=== PATIENT | male | born 1995 | race Caucasian/White ===

== ENCOUNTER 2019-01-18 12:03 | Emergency (ER) | payer OTHER ==
[2019-01-18 12:17] VITALS: BP 126/61
--- NOTE | 2019-01-18 13:00 | EDPHY ---
H & P Time Seen by Provider: 01/18/19 12:59 HPI/ROS: Chief complaint. Fever HPI. Patient is a 23-year-old male has been sick for 5 days. However he tells me he has had painful sores on his lips for 1 week. He has had fever for 5 days. Fever to 102 degrees. Seen at work and [place] and started on Valtrex 3 days ago. He also symptoms began with a sore throat. No cough. No abdominal pain, chest pain, shortness of breath, vomiting diarrhea, rash. No recent sick contacts or travel. No previous mouth sores on his lips. Culture at [facility] was positive for herpes. ROS 10 systems were reviewed and negative with the exception of the elements mentioned in the history of present illness Past Medical/Surgical History: Healthy Social History: Single, daily smoker, no alcohol Smoking Status: Current some day smoker Physical Exam: General Appearance: Alert well-developed male mild distress vital signs are stable. Afebrile currently Eyes: Pupils equal and round no pallor or injection. ENT, tympanic membranes are normal. Pharynx slightly injected without exudate. No lesions noted on hard or soft palate. Crusty yellow lesions on upper and lower lips. No significant cervical adenopathy Respiratory: There are no retractions, lungs are clear to auscultation. Cardiovascular: Regular rate and rhythm. Gastrointestinal: Abdomen is soft and nontender, no masses, bowel sounds normal. Neurological: Awake and alert, sensory and motor exams grossly normal. Skin: Warm and dry, no rashes. Musculoskeletal: Neck is supple nontender. Extremities symmetrical, full range of motion. Psychiatric: Patient is oriented X 3, there is no agitation. Constitutional: Initial Vital Signs Temperature (C) 36.6 C 01/18/19 12:15 Heart Rate 78 01/18/19 12:15 Respiratory Rate 18 01/18/19 12:15 Blood Pressure 126/61 H 01/18/19 12:15 O2 Sat (%) 97 01/18/19 12:15 O2 Delivery Mode Room Air Allergies/Adverse Reactions: No Known Allergies Allergy (Unverified 01/18/19 12:14) Home Medications: Medication Instructions Recorded Valtrex 01/18/19 Medical Decision Making ED Course/Re-evaluation: Re-evaluation at 2:00 p.m.. Patient is stable. Patient and I discussed laboratory evaluation, treatment plan including criteria for return importance follow-up further evaluation. He expresses understanding and agreement Differential Diagnosis: This appears to be 1st onset herpes gingivitis and stomatitis. No other sources for fever or infection are identified. Patient already taking Valtrex. Culture was positive for herpes this week. - Data Points Laboratory Results: 01/18/19 01/18/19 Unknown 13:15 Group A Strep Screen NEGATIVE (NEGATIVE) Group A Strep DNA Pending Departure - Departure Disposition: Home, Routine, Self-Care Clinical Impression: Herpes stomatitis Condition: Good Instructions: Oral Herpes Simplex Virus Infections (ED) Additional Instructions: Continue Valtrex as prescribed until completed Ibuprofen 600 mg every 6 hr, Tylenol 1000 mg every 6 hr as needed for fever. May alternate these every 3 hr Return for worsening symptoms Re-evaluation at [facility] or infectious disease in 3 days if not improved Referrals: NONE *PRIMARY CARE P,. [Primary Care Provider] - As per Instructions [facility] [Outside] - As per Instructions Marilynn Guerra MD [Medical Doctor] - 2-3 days, if not improved
== END 2019-01-18 14:16 | disposition home or self-care (01) ==
DX: B00.2 Herpesviral gingivostomatitis and pharyngotonsillitis (principal)